=== PATIENT | female | born 1960 | race Caucasian/White ===

== ENCOUNTER → 2016-09-03 | Outpatient (CLI) | payer OTHER ==
[~2016-09-03] MED LIST: MULT-82 PO; [UNRECOGNIZED DRUG - OTHER] PO; vital reds PO
== END | disposition home or self-care (01) ==
LOC: PETCFH 08:20
PROVIDERS: ATTEND Specialist
DX: C50.919 Malignant neoplasm of unspecified site of unspecified female breast (principal)
CPT/HCPCS: 78306; A9503

== ENCOUNTER → 2016-09-05 | Outpatient (CLI) | payer OTHER | LOC: ROC 09:18 | PROVIDERS: ATTEND Radiology Radiation Oncology | DX: Z02.9 Encounter for administrative examinations, unspecified (principal) ==

== ENCOUNTER → 2016-11-29 | Outpatient (CLI) | payer OTHER | END | disposition home or self-care (01) | LOC: ROC 09:23 | PROVIDERS: ATTEND Radiology Radiation Oncology | DX: Z08 Encounter for follow-up examination after completed treatment for malignant neoplasm (principal); C50.411 Malignant neoplasm of upper-outer quadrant of right female breast | CPT/HCPCS: 99213; G0463 ==

== ENCOUNTER → 2017-01-03 | Outpatient (CLI) | payer OTHER | END | disposition home or self-care (01) | LOC: CFH 12:58 | PROVIDERS: ATTEND Radiology Radiation Oncology | DX: C50.411 Malignant neoplasm of upper-outer quadrant of right female breast (principal) ==

== ENCOUNTER → 2017-07-14 | Outpatient (CLI) | payer OTHER ==
[~2017-07-14] MED LIST changes: +MULT-224 PO; -MULT-82 PO
== END | disposition home or self-care (01) ==
LOC: ROC 13:10
PROVIDERS: ATTEND Radiology Radiation Oncology
DX: Z08 Encounter for follow-up examination after completed treatment for malignant neoplasm (principal); C50.411 Malignant neoplasm of upper-outer quadrant of right female breast
CPT/HCPCS: 99213; G0463

== ENCOUNTER 2018-08-26 12:25 | Outpatient (CLI) | payer OTHER ==
[~2018-08-26 12:25] MED LIST changes: -MULT-224 PO; +MULT-642 PO
[2018-08-26] MEDS ORDERED: ANAS1TAB PO (12:49)
[2018-08-26] MEDS ORDERED: TERB250T14 PO (12:49)
[2018-08-26] MEDS ORDERED: [UNRECOGNIZED DRUG - OTHER] PO (12:49)
== END 2018-08-26 23:59 | disposition home or self-care (01) ==
LOC: STAR 12:25
PROVIDERS: ATTEND Thoracic Surgery (Cardiothoracic Vascular Surgery)
DX: Z02.9 Encounter for administrative examinations, unspecified (principal)

== ENCOUNTER 2018-09-02 05:57 | Day surgery (SDC) | payer BC, OTHER ==
[~2018-09-02] VITALS: Ht 162.6 cm; Wt 70.0 kg
[~2018-09-02 05:57] MED LIST changes: +ANAS1TAB PO; +TERB250T14 PO; +[UNRECOGNIZED DRUG - OTHER] PO
[2018-09-02 06:56] VITALS: BP 105/75
[2018-09-02] MEDS ORDERED: BUPIVACAINE/PF-EPI 0.5% 1:200K ONE (06:56)
[2018-09-02] MEDS ORDERED: LACTATED RINGERS 1,000 ML IV SCH ×2 (06:58→08:35)
[2018-09-02] MEDS ORDERED: FENTANYL PF 100 MCG/2ML ONE ×2 (07:09→08:36)
[2018-09-02] MEDS ORDERED: MIDAZOLAM 1 MG/ML, 2ML ONE (07:09)
[2018-09-02] MEDS ORDERED: SUCCINYLCHOLINE 20 MG/ML, 10ML ONE (07:33)
[2018-09-02] MEDS ORDERED: ONDANSETRON 2MG/ML, 2ML ONE (07:33)
[2018-09-02] MEDS ORDERED: DEXAMETHASONE 4 MG/ML, 1ML ONE (07:33)
[2018-09-02] MEDS ORDERED: PROPOFOL 10 MG/ML, 20ML ONE (07:33)
[2018-09-02] MEDS ORDERED: ROCURONIUM 10 MG/ML,10ML ONE (07:33)
[2018-09-02] MEDS ORDERED: CEFAZOLIN 1,000 MG ONE (07:33)
[2018-09-02] MEDS ORDERED: SUGAMMADEX 200 MG/2 ML IVPush ONE (08:23)
[2018-09-02] MEDS ORDERED: hydrALAzine 20 MG/ML, 1ML IV PRN (08:30)
[2018-09-02] MEDS ORDERED: PROMETHAZINE 25 MG/ML, 1ML IV PRN (08:30)
[2018-09-02] MEDS ORDERED: LABETALOL 5MG/ML, 20ML IV PRN (08:30)
[2018-09-02] MEDS ORDERED: MEPERIDINE/PF 25MG/0.5ML IVPush PRN (08:30)
[2018-09-02] MEDS ORDERED: ONDANSETRON 2MG/ML, 2ML IVPush PRN ×2 (08:30→09:00)
[2018-09-02] MEDS ORDERED: ALBUTEROL SULFATE 2.5 MG/3 ML NPPB PRN (08:30)
[2018-09-02] MEDS ORDERED: KETOROLAC 30 MG/1 ML IV PRN (08:30)
[2018-09-02] MEDS ORDERED: HYDROmorphone 1 MG/ML, 1ML IV PRN (08:30)
[2018-09-02] MEDS ORDERED: METOCLOPRAMIDE 5 MG/ML, 2ML IV PRN (08:30)
[2018-09-02] MEDS ORDERED: OXYcodone 5 MG/5 ML ORAL.SOL UDC PO PRN (08:30)
[2018-09-02] MEDS ORDERED: KETOROLAC 30 MG/1 ML ONE (08:35)
[2018-09-02] MEDS ORDERED: OXYcodone 5 MG/5 ML ORAL.SOL UDC ONE (08:36)
[2018-09-02] MEDS: FENTANYL PF 100 MCG/2ML IV PRN ×2 (08:37→08:47)
[2018-09-02] MEDS ORDERED: morphine SULFATE 10 MG/ML, 1ML IVPush PRN (09:00)
[2018-09-02] MEDS ORDERED: HYDROcodone/APAP 5/325 TABLET PO PRN (09:00)
== END 2018-09-02 10:10 | disposition home or self-care (01) ==
LOC: OUT 05:57
PROVIDERS: ATTEND Thoracic Surgery (Cardiothoracic Vascular Surgery)
DX: T85.598A Other mechanical complication of other gastrointestinal prosthetic devices, implants and grafts, initial encounter (principal); K21.9 Gastro-esophageal reflux disease without esophagitis; G47.33 Obstructive sleep apnea (adult) (pediatric); Y83.8 Other surgical procedures as the cause of abnormal reaction of the patient, or of later complication, without mention of misadventure at the time of the procedure; Y92.89 Other specified places as the place of occurrence of the external cause; Z98.890 Other specified postprocedural states; Z98.51 Tubal ligation status; Z72.89 Other problems related to lifestyle
CPT/HCPCS: 43774; J0330; J0690; J1100; J1885; J2250; J2405; J2704; J3010